=== PATIENT | male | born 1960 | race Caucasian/White ===

== ENCOUNTER → 2023-11-10 16:21 | Outpatient (REF) | payer BC, SELFPAY | LOC: RAD 16:21 | PROVIDERS: ATTENDING PHYSICIAN Specialist; FAMILY PHYSICIAN Student in an Organized Health Care Education/Training Program | DX: N43.3 Hydrocele, unspecified (principal) | CPT/HCPCS: 76870; 93976 ==

== ENCOUNTER → 2023-12-04 11:44 | Outpatient (REF) | payer BC, SELFPAY | LOC: ECG 11:44 | PROVIDERS: ATTENDING PHYSICIAN Orthopaedic Surgery; FAMILY PHYSICIAN Student in an Organized Health Care Education/Training Program | DX: S83.231A Complex tear of medial meniscus, current injury, right knee, initial encounter (principal) | CPT/HCPCS: 93005 ==

== ENCOUNTER 2024-01-01 06:19 | Day surgery (SDC) | payer BC, SELFPAY ==
[2024-01-01 12:33] VITALS: BMI 29.5
[2024-01-01 12:34] VITALS: BP 149/85
[2024-01-01] MEDS: NORMOSOL-R 1000 IV (12:41)
[2024-01-01] MEDS: TYLENOL 1000 MG PO (12:41)
[2024-01-01] MEDS: CELEBREX 200 MG PO (12:41)
== END 2024-01-01 13:13 | disposition home or self-care (01) ==
LOC: SDS 06:19
PROVIDERS: ATTENDING PHYSICIAN Orthopaedic Surgery
DX: S83.232A Complex tear of medial meniscus, current injury, left knee, initial encounter (principal); X58.XXXA Exposure to other specified factors, initial encounter; Z53.9 Procedure and treatment not carried out, unspecified reason
CPT/HCPCS: 29881

== ENCOUNTER → 2024-01-02 08:53 | Outpatient (REF) | payer BC, SELFPAY | LOC: RAD 08:53 | PROVIDERS: ATTENDING PHYSICIAN Orthopaedic Surgery; FAMILY PHYSICIAN Student in an Organized Health Care Education/Training Program | DX: M79.662 Pain in left lower leg (principal) | CPT/HCPCS: 74177; 93971; Q9967 ==

== ENCOUNTER → 2024-01-02 14:46 | Outpatient (REF) | payer BC, SELFPAY | LOC: RAD 14:46 | PROVIDERS: ATTENDING PHYSICIAN Internal Medicine | DX: R60.0 Localized edema (principal) | CPT/HCPCS: 74177; Q9967 ==

== ENCOUNTER 2024-01-22 06:45 | Day surgery (SDC) | payer BC, SELFPAY ==
[2024-01-22] VITALS (9 sets, daily range): BP systolic 128–153; BP diastolic 75–93; BMI 33.3
[2024-01-22] MEDS: TYLENOL 1000 MG PO (12:38)
[2024-01-22] MEDS: CELEBREX 200 MG PO (12:39)
[2024-01-22] MEDS: NORMOSOL-R 1000 IV (12:52)
[2024-01-22] MEDS: DILAUDID 0.25 MG IV ×2 (14:30→14:38)
== END 2024-01-22 15:48 | disposition home or self-care (01) ==
LOC: SDS 06:45
PROVIDERS: ATTENDING PHYSICIAN Orthopaedic Surgery
DX: S83.232A Complex tear of medial meniscus, current injury, left knee, initial encounter (principal); X58.XXXA Exposure to other specified factors, initial encounter; M94.262 Chondromalacia, left knee
CPT/HCPCS: 29881; C1713

== ENCOUNTER 2024-12-09 06:07 | Day surgery (SDC) | payer BC, SELFPAY ==
[2024-11-26 09:31] LABS: Hematocrit 41.7 % (39.0-52.0); Hemoglobin 14.6 g/dL (13.0-18.0); Mean Corpuscular Hgb 29.9 pg (27.0-31.0); Mean Corpuscular Volume 85.5 fL (80.0-94.0); Mean Platelet Volume 10.5 fL (7.4-10.4); Platelet Count 209 10^3/uL (130-400); Red Blood Cell Count 4.88 10^6/uL (4.70-6.10); Red Cell Dist. Width 12.7 % (11.5-14.5); White Blood Cell Count 6.9 10^3/uL (4.8-10.8)
[2024-11-26 10:00] LABS: Blood Urea Nitrogen 15 mg/dl (9-20); Calcium 9.5 mg/dl (8.4-10.2); Carbon Dioxide 29 mmol/L (22-30); Chloride 105 mmol/L (98-107); Glucose 106 mg/dl (70-99); Potassium 4.1 mmol/L (3.5-5.1); Sodium 142 mmol/L (135-145); eGFR > 60.00
[2024-11-26 14:07] VITALS: BMI 30.6
[2024-12-09] VITALS (7 sets, daily range): BP systolic 114–133; BP diastolic 70–78; BMI 30.6
[2024-12-09] MEDS: NORMOSOL-R/PLASMALYTE-A 1000 IV (07:18)
== END 2024-12-09 09:45 | disposition home or self-care (01) ==
LOC: SDS 06:07
PROVIDERS: ATTENDING PHYSICIAN Specialist; FAMILY PHYSICIAN Student in an Organized Health Care Education/Training Program
DX: N45.1 Epididymitis (principal); N43.3 Hydrocele, unspecified
CPT/HCPCS: 55040; 54860; 88304; 36415; 80048; 85027; 88341; 88342; 93005

== ENCOUNTER → 2025-03-08 08:14 | Outpatient (REF) | payer BC, SELFPAY | LOC: RCS 08:14 | PROVIDERS: ATTENDING PHYSICIAN Internal Medicine; FAMILY PHYSICIAN Student in an Organized Health Care Education/Training Program | DX: I10 Essential (primary) hypertension (principal) | CPT/HCPCS: 93306 ==